=== PATIENT | female | born 1940 | race Two or more races ===

== ENCOUNTER → 2017-06-24 | Outpatient (CLI) | payer OTHER, MEDICAID | END | disposition home or self-care (01) | LOC: Rad HDHVI 13:30 | PROVIDERS: ATTEND Internal Medicine | DX: I08.2 Rheumatic disorders of both aortic and tricuspid valves (principal); I87.2 Venous insufficiency (chronic) (peripheral); I71.2 Thoracic aortic aneurysm, without rupture | CPT/HCPCS: 93306; 93971 ==

== ENCOUNTER → 2017-06-26 | Outpatient (CLI) | payer OTHER, MEDICAID ==
[~2017-06-26] MED LIST: IOHEXOL 350 MG/ML 100ML IJ ONE
[2017-06-26 08:45] VITALS: BP 134/70
[2017-06-26 09:15] VITALS: BP 144/61
== END | disposition home or self-care (01) ==
LOC: Rad HDHVI 08:11
PROVIDERS: ATTEND Internal Medicine
DX: I71.2 Thoracic aortic aneurysm, without rupture (principal); I87.2 Venous insufficiency (chronic) (peripheral); M34.9 Systemic sclerosis, unspecified; M35.00 Sjogren syndrome, unspecified; I10 Essential (primary) hypertension; R00.2 Palpitations; R42 Dizziness and giddiness; M79.89 Other specified soft tissue disorders
CPT/HCPCS: 71275; 82565; G0463; Q9967

== ENCOUNTER → 2017-07-01 | Outpatient (CLI) | payer OTHER, MEDICAID ==
[~2017-07-01] VITALS: Ht 167.6 cm; Wt 68.0 kg
[2017-07-01 12:11] LABS: Basophils # (auto) 0 uL; Basophils % (auto) 0.9 % (0.0-2.0); Eosinophils # (auto) 0.1 uL; Eosinophils % (auto) 1.8 % (0.0-7.0); Hematocrit 39.9 % (36.0-46.0); Hemoglobin 13.3 g/dL (12.2-16.2); Lymphocytes # (auto) 1.1 uL; Lymphocytes % (auto) 33.6 % (10.0-50.0); Mean Corpuscular Hemoglobin 31.6 pg (28.0-32.0); Mean Corpuscular Hgb Conc. 33.4 g/dL (32.0-36.0); Mean Corpuscular Volume 94.7 fL (80.0-100.0); Monocytes # (auto) 0.4 uL; Monocytes % (auto) 11.8 % (0.0-12.0); Neutrophils # (auto) 1.7 uL; Neutrophils % (auto) 51.9 % (37.0-80.0); Nucleated Red Blood Cells % 0.1 %; Platelet Count (auto) 174 10^3/uL (140-450); Red Blood Cells 4.21 10^6/uL (4.0-5.20); Red Cell Distribution Width 14.6 % (11.8-14.3); White Blood Cell 3.3 10^3/uL (4.4-10.8)
[2017-07-01 12:12] LABS: Urine Bacteria NONE SEEN /hpf (None Seen); Urine Blood Negative /uL (Negative); Urine Specific Gravity 1.007 (1.001-1.035); Urine WBC 1 /hpf (0 - 5)
[2017-07-01 12:42] LABS: Free T4 (Free Thyroxine) 1.03 ng/dL (0.89-1.76)
[2017-07-01 12:43] LABS: T3 Total 1.01 ng/mL (0.60-1.81)
[2017-07-01 12:50] LABS: Albumin 3.6 g/dL (3.4-5.0); BUN/Creatinine Ratio 23.2; Bilirubin, Total 0.5 mg/dL (0.2-1.0); Calcium 9.2 mg/dL (8.5-10.1); Potassium 3.8 mmol/L (3.5-5.1); Total Protein 7.3 g/dL (6.4-8.2)
== END | disposition home or self-care (01) ==
LOC: Rad HDHVI 07:55
PROVIDERS: ATTEND Internal Medicine
DX: E78.5 Hyperlipidemia, unspecified (principal); R74.8 Abnormal levels of other serum enzymes; D64.9 Anemia, unspecified; I10 Essential (primary) hypertension; E11.9 Type 2 diabetes mellitus without complications; E03.9 Hypothyroidism, unspecified; E55.9 Vitamin D deficiency, unspecified; D51.9 Vitamin B12 deficiency anemia, unspecified; N39.0 Urinary tract infection, site not specified
CPT/HCPCS: 36415; 78452; 80053; 80061; 81001; 82306; 82550; 82607; 83036; 84439; 84443; 84480; 85025; 87086; 93017; 96374; A9500